=== PATIENT | male | born 1940 | race Caucasian/White ===

== ENCOUNTER 2016-07-20 22:19 | Outpatient (CLI) ==
[2016-07-20 22:52] VITALS: BMI 28.7
== END 2016-07-20 22:20 | disposition home or self-care (01) ==
LOC: AMBL 22:19
PROVIDERS: ATTEND Emergency Medicine
DX: R56.9 Unspecified convulsions (principal); R11.10 Vomiting, unspecified; R53.1 Weakness; R06.02 Shortness of breath; R19.7 Diarrhea, unspecified; R17 Unspecified jaundice; I44.0 Atrioventricular block, first degree; I49.3 Ventricular premature depolarization; R00.0 Tachycardia, unspecified

== ENCOUNTER 2016-07-20 22:33 | Emergency (ER) | payer OTHER ==
[2016-07-20] MEDS ORDERED: SODIUM CHLORIDE 1,000 ML IV STA (22:35)
[2016-07-20 22:39] LABS: HEMATOCRIT 29.5 % (42.0-52.0); HEMOGLOBIN 8.8 g/dl (14.0-18.0); MEAN CORPUSCULAR HEMOGLOBIN 30.2 pg (27.0-31.0); MEAN CORPUSCULAR HGB CONC 29.8 (31.8-35.4); MEAN CORPUSCULAR VOLUME 101.4 fl (80.0-94.0); PLATELET COUNT 431 10^3/uL (140-440); RED BLOOD COUNT 2.91 10^6/ul (4.70-6.10); WHITE BLOOD COUNT 10.15 K/ul (4.2-10.2)
[2016-07-20] MEDS ORDERED: ZOSYN 3.375 GM 3.375 GM in SODIUM CHLORIDE 100 ML IV STA (22:42)
[2016-07-20 22:50] LABS: ANISOCYTOSIS NOT PRESENT (NOT PRESENT)
[2016-07-20 22:52] VITALS: BP 110/0; TEMP 95.4; BMI 28.7
--- NOTE | 2016-07-20 22:53 | ED.PDOC ---
General ED Provider: Dr. GILMER ENGLAND Chief Complaint: Shortness of Air Stated Complaint: Patient is dischared from the [facility] today at 5 pm, after a extensive stay and he was put on a drain for the gb stones, on the way to [place] they ate at [facility], and came home, he was SOB, not by him self, called EMT. Time Seen by Physician: 22:51 Primary Care Provider: FINESSE TORIBIO Nursing and Triage Documentation Reviewed and Agree: Yes Respiratory Complaint Exam - Shortness of Air Complaint/Exam Symptoms Are: Still present Timing: Constant Initial Severity: Moderate Current Severity: Moderate Character: Reports: Dyspnea at rest Aggravating: Reports: None Alleviating: Reports: None Associated Signs and Symptoms: Reports: Diaphoresis, Labored breathing, Decreased intake. Denies: Cough, Wheezing, Chest pain with cough, Chest pain, Fever, Chills, Nasal congestion, Dizziness, Calf pain, Calf swelling, Edema, Rapid breathing History of Healthcare-Acquired Pneumonia: No Pulmonary Embolism Risk Factors: Reports: None Cardiac Risk Factors: Reports: CAD, Hypertension Pseudomonas Risk Factors: Reports: None Tuberculosis Risk Factors: Reports: None Home Oxygen Use: No Recent Stress Test: No Recent Echo/LV Function: No Respiratory Distress: Mild Stridor Present: No Tracheal Deviation: No Subcutaneous Emphysema: No Accessory Muscle Use: Yes Retractions: Not Present Diminished Breath Sounds: No Prolonged Expiratory Phase: Yes Unable to Speak Full Sentences: Yes Fatigue: No Leg Swelling: No Virgilio's Sign Present: No Differential Diagnoses: CHF, Unstable Angina, Other (sepsis) Quality Indicators for AMI: EKG in 10min. Review of Systems - Review Of Systems Constitutional: Reports: Malaise, Weakness Eyes: Reports: No symptoms Ears, Nose, Mouth, Throat: Reports: No symptoms Respiratory: Reports: Short of air Cardiac: Reports: No symptoms GI: Reports: No symptoms : Reports: No symptoms Musculoskeletal: Reports: No symptoms Skin: Reports: No symptoms Neurological: Reports: No symptoms Endocrine: Reports: No symptoms Hematologic/Lymphatic: Reports: No symptoms All Other Systems: Reviewed and Negative Past Medical History - Past Medical History Previously Healthy: No Endocrine: Reports: None Cardiovascular: Reports: CAD, Hypertension, CHF Respiratory: Reports: None Hematological: Reports: None Gastrointestinal: Reports: Liver, Gallstones (s/p salud) Genitourinary: Reports: None Neuro/Psych: Reports: None Musculoskeletal: Reports: None Cancer: Reports: None - Surgical History General Surgical History: Reports: CABG - Family History Family History: Reports: None - Social History Lives: With family Physical Exam - Physical Exam Appearance: Ill-appearing, Thin Ill-appearing: Moderate Eyes: EOMI (icterus) ENT: Ears normal, Nose normal, Oropharynx normal Respiratory: Breath sounds diminished Cardiovascular: RRR, Tachycardia GI/: Soft, Bowel sounds hypoactive Musculoskeletal: Normal strength, ROM intact, No edema, No calf tenderness Skin: Warm, Dry, Normal color Neurological: Sensation intact, Motor intact, Reflexes intact, Cranial nerves intact, Alert, Oriented Psychiatric: Affect appropriate, Mood appropriate Critical Care Note - Critical Care Note Total Time (mins): 0 Course - Course Hematology/Chemistry: 07/20/16 22:35 07/20/16 22:35 Orders, Labs, Meds: Lab Review 07/20/16 07/20/16 22:35 22:42 WBC 10.15 RBC 2.91 L Hgb 8.8 L Hct 29.5 L MCV 101.4 H MCH 30.2 MCHC 29.8 L RDW Coeff of Grace 20.6 H Plt Count 431 Neutrophils % (Manual) 51.0 Lymphocytes % (Manual) 42.0 Monocytes % (Manual) 2.0 Metamyelocytes % 4.0 H Promyelocytes % 1.0 H Puncture Site Lb O2 Saturation 93.0 L ABG pH 7.261 L* ABG pCO2 27.2 L ABG pO2 73.0 L ABG HCO3 12.3 L ABG Total CO2 13 L ABG Base Excess -15 L Owen Test + FiO2 % 21.0 Sodium 136 Potassium 4.4 Chloride 101 Carbon Dioxide 13 L Anion Gap 26.4 BUN 14 Creatinine 1.87 H Estimated GFR (MDRD) 35.00 BUN/Creatinine Ratio 7.48 Glucose 293 H Calcium 9.0 Total Bilirubin 10.72 H AST 154 H ALT 108 H Alkaline Phosphatase 271 H Total Creatine Kinase 34 Troponin I < 0.0100 Total Protein 7.3 Albumin 2.0 L Globulin 5.3 Albumin/Globulin Ratio 0.38 Orders Category Date Time Status ABG DRAW REQUEST Stat CARDIO 07/20/16 22:42 Completed EKG-(ED ONLY) Stat CARDIO 07/20/16 22:35 Completed NEBULIZER TREATMENT Stat CARDIO 07/20/16 22:57 Completed ABG Stat LAB 07/20/16 22:42 Completed CBC W/ AUTO DIFF Stat LAB 07/20/16 22:35 Completed COMPREHENSIVE METABOLIC PANEL Stat LAB 07/20/16 22:35 Completed CREATINE KINASE Stat LAB 07/20/16 22:35 Completed LACTIC ACID Stat LAB 07/21/16 00:16 Received MANUAL DIFFERENTIAL Stat LAB 07/20/16 22:35 Completed TROPONIN I Stat LAB 07/20/16 22:35 Completed Ipratropium/Albuterol Neb [Duoneb] MEDS 07/20/16 22:57 Discontinued 1 vial NEB ONCE STA Piperacillin Sodium/Tazobactam [Zosyn 3.375 gm] 3.375 MEDS 07/20/16 22:42 Discontinued gm 0.9 % Sodium Chloride [Sodium Chloride] 100 ml IV ONCE Sodium Chloride 0.9% [Sodium Chloride] 1,000 ml MEDS 07/20/16 22:35 Discontinued IV BOLUS Vancomycin HCl [Vancomycin] 1 gm MEDS 07/21/16 00:25 Active 0.9 % Sodium Chloride [Sodium Chloride] [address] ABDOMEN/PELVIS WO CONTRAST Stat RADS 07/20/16 22:[address] CHEST W/O CONTRAST Stat RADS 07/20/16 23:[address] HEAD W/O CONTRAST Stat RADS 07/20/16 23:12 Completed Medications Generic Name Dose Route Start Last Admin Trade Name Freq PRN Reason Stop Dose Admin Vancomycin HCl 1 gm/ Sodium 250 mls @ 250 mls/hr 07/21/16 00:25 Chloride IV 07/21/16 01:24 ONCE STA Discontinued Medications Generic Name Dose Route Start Last Admin Trade Name Freq PRN Reason Stop Dose Admin Albuterol/Ipratropium 1 vial 07/20/16 22:57 07/20/16 23:01 Duoneb NEB 07/20/16 22:58 1 vial ONCE STA Administration Sodium Chloride 1,000 mls @ 1,000 mls/hr 07/20/16 22:35 07/20/16 22:40 Sodium Chloride IV 07/20/16 23:34 1,000 mls/hr BOLUS STA Administration Piperacillin Sod/Tazobactam 100 mls @ 100 mls/hr 07/20/16 22:42 07/20/16 23: 13 Sod 3.375 gm/ Sodium Chloride IV 07/20/16 23:41 100 mls/hr ONCE STA Administration Vital Signs: Temp Pulse Resp BP Pulse Ox 07/20/16 22:33 95.4 F L 136 H 24 110/0 L 98 Departure - Departure Time of Disposition: :08 Disposition: TSF SHORT-TRM HOSP Discharge Problem: Septic shock, Metabolic acidosis Instructions: Hypotension (ED) Condition: Poor Pt referred to PMD for follow-up: Yes Additional Instructions: accepted at [facility] patient will shipped by Donna lagunas Allergies/Adverse Reactions: Allergies atorvastatin [From Lipitor] Adverse Reaction (Verified 07/20/16 22:53) gabapentin Adverse Reaction (Verified 07/20/16 22:53) lisinopril Adverse Reaction (Verified 07/20/16 22:52) oxycodone Adverse Reaction (Verified 07/20/16 22:52) perflutren [From Definity] Adverse Reaction (Verified 07/20/16 22:52) Home Medications: Ambulatory Orders Aspirin [Aspirin EC] 81 mg PO DAILYWM 07/20/16 Furosemide [Lasix Tab] 20 mg PO DAILY PRN 07/20/16 Furosemide [Lasix Tab] 20 mg PO QDAC 07/20/16 Lactulose 20 gm PO Q6H PRN 07/20/16 Losartan Potassium [Cozaar] 25 mg PO DAILY 07/20/16 Lysine HCl [l-Lysine] 500 mg PO DAILY 07/20/16 Metoprolol Tartrate [Lopressor] 12.5 mg PO BID 07/20/16 Multivitamin 1 cap PO DAILY 07/20/16 Nitroglycerin [Nitrostat] 0.4 mg SL DIRECTED PRN 07/20/16 Nystatin [Nystatin Oral Susp] 5 ml PO TID PRN 07/20/16 Piperacillin Sodium/Tazobactam [Piperacil-Tazobact 13.5 gm Vl] 13.5 gm IV DIRECTED 07/20/16 Potassium Chloride [K-Tab ER] 20 meq PO DAILY PRN 07/20/16 Pregabalin [Lyrica] 100 mg PO BID 07/20/16 Ranitidine HCl [Zantac] 150 mg PO QDAC PRN 07/20/16 Sotalol HCl [Sotalol] 80 mg PO BID 07/20/16 Ubidecarenone [Co Q10] 500 mg PO DAILY 07/20/16 Warfarin Sodium [Coumadin] 0.5 tab PO WE 07/20/16 Warfarin Sodium [Coumadin] 5 mg PO JIMENA 07/20/16 Transfer Form Completed: Yes Disposition Discussed With: Patient, Family
[2016-07-20 22:55] LABS: ABG BASE EXCESS -15 (-2.0-2.0); ABG HCO3 12.3 (22.0-26.0); ABG PCO2 27.2 mmHg (35-45); ABG PH 7.261 (7.35-7.45); ABG TCO2 13 (22.0-28.0)
[2016-07-20] MEDS ORDERED: DUONEB NEB STA (22:57)
[2016-07-20 23:08] LABS: ALANINE AMINOTRANSFERASE 108 U/L (12-78); ALBUMIN/GLOBULIN RATIO 0.38; ALKALINE PHOSPHATASE 271 U/L (56-119); ANION GAP 26.4; ASPARTATE AMINO TRANSFERASE 154 U/L (15-37); BILIRUBIN,TOTAL 10.72 mg/dL (0.00-1.20); BLOOD UREA NITROGEN 14 mg/dL (7-18); BUN/CREATININE RATIO 7.48; CARBON DIOXIDE 13 mmol/L (23-31); CHLORIDE 101 mmol/L (98-107); CREATINE KINASE 34 U/L; CREATININE 1.87 mg/dL (0.60-1.10); GLUCOSE 293 mg/dL (82-115); POTASSIUM 4.4 mmol/L (3.5-5.1); SODIUM 136 mmol/L (136-145); TOTAL PROTEIN 7.3 g/dL (5.8-8.1)
[2016-07-21] MEDS ORDERED: SODIUM CHLORIDE 1,000 ML IV STA (00:02)
--- NOTE | 2016-07-21 00:12 | CT ---
EXAM: CT brain without contrast HISTORY: Altered mental status and vomiting TECHNIQUE: CT of the brain without intravenous contrast FINDINGS: There is no acute hemorrhage midline shift or mass effect. No hydrocephalus or abnormal extra-axial fluid collection. Generalized involutional atrophy, moderate. Chronic microvascular ch anges of the white matter tracts, moderate. No acute large vessel territorial infarct is seen. The bony cranium appears normal. The visualized paranasal sinuses are clear. Soft tissues without signi ficant abnormality. IMPRESSION: 1. Chronic changes as described. No acute intracranial abnormality is seen.
--- NOTE | 2016-07-21 00:20 | CT ---
EXAM: CT chest without intravenous contrast 07/20/2016. Sagittal and coronal reformatted images ob tained HISTORY: Shortness of breath COMPARISON: None. FINDINGS: The heart size appears within normal limits. Left-sided pacer device is in place. Posto perative changes of the mediastinum. Atherosclerotic vascular disease. Linear ground-glass density is present within the right and left lung base. This may represent atelectasis, scarring and/or pn eumonia. Bibasilar bronchial wall thickening. Aspiration/bronchiolitis not excluded. No pleural effusion. No pneumothorax. No acute osseous abnormality within the chest. Postoperative changes of the right shoulder. IMPRESSION: 1. Bibasilar atelectasis, scarring and/or pneumonia. 2. Atherosclerotic vascular disease. 3. Bibasilar bronchial wall thickening. Aspiration/bronchiolitis not excluded.
[2016-07-21] MEDS ORDERED: VANCOMYCIN 1 GM in SODIUM CHLORIDE 250 ML IV STA (00:25)
--- NOTE | 2016-07-21 00:31 | CT ---
EXAM: CT abdomen pelvis without intravenous contrast 07/20/2016. Sagittal and coronal reformatted images obtained HISTORY: Jaundice. Hypotension. COMPARISON: None. FINDINGS: Bibasilar atelectasis. A drainage catheter traverses the right lobe of the liver and extends through the common bile duct t o the level of the duodenum. There is complex blood products/hematoma along the undersurface of the right lobe of the liver. Complex pelvic fluid likely due to hemorrhage. Fluid fluid level can be seen on image 130/131. Active bleeding cannot be excluded due to lack of intravenous contrast. No prior study available fo r comparison. There is no hydronephrosis. Benign appearing renal cysts. The spleen and pancreas show no gross abnormality. There is no evidence of bowel obstruction. Norm al appendix. Diverticulosis without diverticulitis. IMPRESSION: 1. Transhepatic drainage catheter extends through the common bile duct to the level of the duodenum . 2. Complex hemorrhage/hematoma along the undersurface of the right lobe of the liver. 3. Complex fluid within the pelvis. Fluid fluid level can be seen on images 130 and 131. This is also most compatible with blood products. 4. Active hemorrhage cannot be excluded on the current study. Evaluation is limited due to lack of intravenous contrast. In addition there is no prior study for comparison. Critical FINDINGS: I personally discussed the above findings with Dr. Hussein, 07/21/2016, 12:20 a.m .
== END 2016-07-21 01:40 | disposition short-term general hospital (02) ==
LOC: ED 22:33
DX: A41.9 Sepsis, unspecified organism (principal); R65.21 Severe sepsis with septic shock; E87.2 Acidosis; I95.9 Hypotension, unspecified; R06.02 Shortness of breath; R61 Generalized hyperhidrosis; K80.80 Other cholelithiasis without obstruction; Z87.19 Personal history of other diseases of the digestive system; Z96.89 Presence of other specified functional implants
CPT/HCPCS: 36415; 80053; 82550; 82803; 83605; 84484; 85007; 85025; 93005; 93010; 94640; 96361; 96365; 96367; 99285

== ENCOUNTER 2016-08-08 12:53 | Outpatient (CLI) | payer OTHER ==
[2016-08-08 13:02] LABS: BASOPHILS # (AUTO) 0.1 K/uL (0-0.2); BASOPHILS % (AUTO) 0.8 % (0.0-3.0); EOSINOPHILS # (AUTO) 0.8 K/ul (0.0-0.7); EOSINOPHILS % (AUTO) 8.2 % (0.0-7.0); HEMATOCRIT 35.7 % (42.0-52.0); HEMOGLOBIN 11.7 g/dl (14.0-18.0); IMMATURE GRANULOCYTE % (AUTO) 1.3 % (0.0-5.0); LYMPHOCYTES # (AUTO) 2.4 K/uL (0.60-3.4); LYMPHOCYTES % (AUTO) 24.2 (10.0-50.0); MEAN CORPUSCULAR HEMOGLOBIN 30.9 pg (27.0-31.0); MEAN CORPUSCULAR HGB CONC 32.8 (31.8-35.4); MEAN CORPUSCULAR VOLUME 94.2 fl (80.0-94.0); MONOCYTES # (AUTO) 1.3 K/uL (0.4-2.0); MONOCYTES % (AUTO) 13.4 (0-10); NEUTROPHILS # (AUTO) 5.1 K/ul (2.0-6.9); NEUTROPHILS % (AUTO) 52.1; PLATELET COUNT 400 10^3/uL (140-440); RED BLOOD COUNT 3.79 10^6/ul (4.70-6.10); WHITE BLOOD COUNT 9.81 K/ul (4.2-10.2)
[2016-08-08 13:23] LABS: ALBUMIN 2.4 g/dL (3.4-5.0); ALBUMIN/GLOBULIN RATIO 0.49; ANION GAP 16.8; BILIRUBIN,TOTAL 8.59 mg/dL (0.00-1.20); BUN/CREATININE RATIO 12.58; CREATININE 1.43 mg/dL (0.60-1.10); POTASSIUM 4.8 mmol/L (3.5-5.1); TOTAL PROTEIN 7.3 g/dL (5.8-8.1)
== END 2016-08-08 12:54 | disposition home or self-care (01) ==
LOC: NONPT 12:53
PROVIDERS: ATTEND Internal Medicine Infectious Disease
DX: K83.0 Cholangitis (principal); A41.9 Sepsis, unspecified organism; I10 Essential (primary) hypertension; Z79.2 Long term (current) use of antibiotics
CPT/HCPCS: 80053; 85025

== ENCOUNTER 2016-08-16 12:49 | Outpatient (CLI) ==
[2016-08-16 14:01] LABS: CALCIUM 9.6 mg/dL (8.2-10.2); POTASSIUM 4.6 mmol/L (3.5-5.1)
[2016-08-16 14:02] LABS: ALBUMIN 2.7 g/dL (3.4-5.0); ALBUMIN/GLOBULIN RATIO 0.56; ANION GAP 20.6; BILIRUBIN,TOTAL 5.26 mg/dL (0.00-1.20); BUN/CREATININE RATIO 18.78; CREATININE 1.65 mg/dL (0.60-1.10); TOTAL PROTEIN 7.5 g/dL (5.8-8.1)
== END 2016-08-16 12:50 | disposition home or self-care (01) ==
LOC: NONPT 12:49
PROVIDERS: ATTEND Internal Medicine Infectious Disease
DX: K83.0 Cholangitis (principal); A41.51 Sepsis due to Escherichia coli [E. coli]; I10 Essential (primary) hypertension
CPT/HCPCS: 80053

== ENCOUNTER 2016-09-12 13:00 | Outpatient (RCR) ==
--- NOTE | 2016-09-08 17:30 | RS.OTEVAL ---
Subjective Date of Note: 09/08/16 Visit #: 1 Date of Evaluation: 09/08/16 Payer Source: MEDICARE Date of Onset/Injury/Change in Status: 07/09/16 (Eccoli ) Treatment Diagnosis: bilateral shoulder weakness Treatment Side (optional): Bilateral *Precautions: at risk for falls, drain for liver History of Condition/Mechanism of Injury: Pt became sick in [place] and then has had recurrent episodes of ecoli bacteremia. Pt had shingles in RUE armpit and side of core. Pt had a RUE shoulder replacement on 2015. Pt then had more episodes of ecoli due to the gall stone. Pt is going on Sep.20 for an ERCP at [facility]. Level of Function: Pt is dressing himself, he has limited carrying ability and he is fatigued quickly. Pt has been sick on and off for over 7 months. Pt has limited bilateral shoulder AROM. Functional Limitations: Reaching, Pushing, Pulling, Lifting, Carrying, Ambulation Current Complaints/Gains: difficulty with BUE AROM, weakness, limited activity tolerance. Medical History Medical History Comments:: Pt has had a total R shoulder reconstruction, drain to the liver, ecoli x 3, gall stone, liver cysts. Surgical History Comments:: Right shoulder replacement, drain for liver Patient's Goals: To get stronger and return to PLOF. Pain Assessment - Pain Description Current Pain Intensity: 0 Functional Outcome Measures UE Functional Index: 70 - G Codes & Severity Modifier G Codes: Carrying moving and handling. Current CL with 70% limitation. Goal CH 0% limitation Source of G Code score: Carrying, Moving, and Handling Observation - Observation Posture: Rounded Shoulders Handedness: Left - Left Shoulder ROM Left Shoulder Flexion: 90 Left Shoulder Extension: 45 Left Shoulder Abduction: 85 Left Shoulder Horizontal Adduction: 20 Left Shoulder Internal Rotation: 25 Left Shoulder External Rotation: 30 - Right Shoulder ROM Right Shoulder Flexion: 92 Right Shoulder Extension: 47 Right Shoulder Abduction: 85 Right Shoulder Horizontal Adduction: 20 Right Shoulder Internal Rotation: 25 Right Shoulder External Rotation: 19 - Left Shoulder Strength Left Shoulder Flexion: 3- Fair- Left Shoulder Extension: 3- Fair- Left Shoulder Abduction: 3- Fair- Left Shoulder Adduction: 3- Fair- Left Shoulder External Rotation: 3- Fair- Left Shoulder Internal Rotation: 3- Fair- - Right Shoulder Strength Right Shoulder Flexion: 3- Fair- Right Shoulder Extension: 3- Fair- Right Shoulder Abduction: 3- Fair- Right Shoulder Adduction: 3- Fair- Right Shoulder External Rotation: 3- Fair- Right Shoulder Internal Rotation: 3- Fair- Elbow ROM: Bilaterally WFL's Elbow Muscle Strength: Bilaterally WFL's - Left Elbow Strength Left Elbow Extension: 4- Good- Left Elbow Flexion: 4- Good- Left Forearm Pronation: 4- Good- Left Forearm Supination: 4- Good- - Right Elbow Strength Right Elbow Extension: 4- Good- Right Elbow Flexion: 4- Good- Right Forearm Pronation: 4- Good- Right Forearm Supination: 4- Good- Wrist ROM: Bilaterally WFL's Wrist Muscle Strength: Bilaterally WFL's - Left Wrist Strength Left Wrist Extension: 4 Good Left Wrist Flexion: 4 Good Left Wrist Radial Deviation: 4 Good Left Wrist Ulnar Deviation: 4 Good Left Forearm Pronation: 4 Good Left Forearm Supination: 4 Good - Right Wrist Strength Right Wrist Extension: 4 Good Right Wrist Flexion: 4 Good Right Wrist Radial Deviation: 4 Good Right Wrist Ulnar Deviation: 4 Good Right Forearm Pronation: 4 Good Right Forearm Supination: 4 Good Relay Man Strength Left Hand Relay Man Strength: 34 Right Hand Relay Man Strength: 25 Dynamometer Testing Position: 2nd Position Palpation Palpation Findings: Tenderness, Trigger Point Comments:: Under right axillary area tenderness from shingles. Sensation Sensation Description: Within Normal Limits Modalities - Treatment Modality: Electrical Stim Unattended Parameters/Method Applied: .4 w/cm2 to decrease taut muscles and tenderness Patient Position: Sitting - Treatment Patient Position: Sitting - Hot Pack/Cryotherapy Treatment: Hot Pack, Cryotherapy Interventions - Exercise/Activities Exercise/Activities/Manual Therapy: Aren Spaulding, EX - Charges Total Direct Minutes: 60 Total Treatment Time: 45 Procedures billed for this date of service:: Aren Spaulding, EX Assessment Assessment: Pt has limited AROM of BUE shoulders and weakness limiting his ability to complete tasks over head, and carrying, moving, and handling tasks. Rehab Potential: Good Short Term Goals Goal #1: Pt to increase Mass general ophthalmologist of RUE to 45# Goal to be met by: 10/06/16 Goal #2: Pt to increase BUE activity tolerance to 20 minutes Goal to be met by: 10/06/16 Goal #3: Pt to increase BUE Shoulder flexion AROM to 135 Goal to be met by: 10/06/16 Goal #4: Pt to increase BUE strength to 4+/5. Goal to be met by: 10/06/16 Senior Living Goals Goal #1: Pt to increase mass general ophthalmologist of RUE to 50# Goal to be met by: 10/06/16 Goal #2: Pt to increase Activity tolerance to 30 minutes with rests PRN. Goal to be met by: 10/20/16 Goal #3: Pt to increase BUE shoulder flexion to 145 degree. Goal to be met by: 10/20/16 Goal #4: Pt to increase BUE strength to 5/5 Goal to be met by: 10/20/16 Plan - Treatment to be provided Procedures: Therapeutic Exercises, Therapeutic Activity, Neuromuscular Rehab, Manual Therapy, Patient Education Modalities: Electrical Stimulation, Ultrasound/Phonophoresis, Cryotherapy, Hot Packs - Treatment Plan Frequency: 3 X week Duration: 6 weeks ORDER # VISITS AND/OR THROUGH DATE: October 20, 2016 - Treatment Code (1) Muscle weakness (generalized) Comments: M62.81
--- NOTE | 2016-09-09 15:20 | RS.OPPTEV2 ---
Date of Note: 09/07/16 Visit #: 1 Date of Evaluation: 09/07/16 Payer Source: MEDICARE Treatment Diagnosis: General weakness, gait abnormality History of Condition/Mechanism of Injury:: Patient reports being very weak since having E Coli Sepsis and Cholecystitis. Problems with E Coli in his system began in February 2016. States he had to be in bed quite a bit and has lost a lot of weight (50 lbs.) and strength. Prior Level of Function.....Patient was independent with: ADL's, Self Care, Caregiving, Ambulation/Mobility, Community Integration/Access Functional Limitations: ADL's, Ambulation, Community Access/Integration Current Subjective/complaints:: Patient reports general weakness and decreased endurance since his hospitalizations. States prior to the onset in February, he was independent with all ADL's, Selfcare, and ambulation. States he now needs assistance with ADL's of showering and some help with getting dressed, due to having the biliary drain. Reports he has been using a straight cane with walking long distances, due to LE weakness and decreased endurance of long distances. States he does not use an assistive device in his home. He has a few stairs to get into his home. *Precautions: Fall risk, biliary drain Medical History Medical History Comments:: Ecoli X 3 since the first of the year, liver cysts, Hypotension, Moderate-severe aortic stenosis, atrial fibrillation, CAD Surgical History Comments:: Biliary drain, right TSR December 2015, CABG 2011. Patient's Goals: His goal is to gain strength and return to his prior level of function. Pain Assessment - Pain Description Pain Location: Denies pain. Functional Outcome Measure Tinetti: 16 (16/28=42.9% impairment) - G Codes & Severity Modifier G Codes & Modifier: Mobility current CK. Mobility goal CI Source of G Code score: Tinetti Assessment Observation - Observation Inspection: Patient presents to the department without an assistive device, carrying a biliary drain. Posture: Forward Head, Rounded Shoulders, Decreased Lumbar Lordosis Gait - Gait Pattern Gait Comments: Patient ambulates without an assistive device, independently. He demonstrates a slow gait, with decreased bilateral hip and knee flexion during swing phase. General Range of Motion: Bilateral LE AROM is WFL's. Muscle Strength: Bilateral hip strength is 4/5 throughout. Bilateral knee strength is 4 to 4+/5, ankles 4+/5. Trunk strength 4/5. Sensation - Sensation Right Lower Extremity: Intact/Normal Left Lower Extremity: Intact/Normal Balance - Sitting Balance Static Sitting Balance: Good Dynamic Sitting Balance: Good - Standing Balance Static Standing Balance: Good Dynamic Standing Balance: Good (-) Coordination - Tests Bilateral Heel to Pena: Normal/Intact Toe Tapping: Normal/Intact Interventions - Exercise/Activities/Manual Therapy Exercises/Activities: Patient instructed in exercises for HEP: seated LAQ and hip flexion, supine SAQ's, hip abd/adduction, and bridging. Manual Therapy: NA HOME EXERCISE PROGRAM: seated LAQ and hip flexion, supine SAQ's, hip abd/ adduction, and bridging. - Charges Total Direct Minutes: 55 mins Total Treatment Time: 55 mins Procedures billed for this date of service:: CHRISTEN Medium complexity Assessment Assessment: Patient presents to therapy with a diagnosis of general weakness due to recent hospitalization from E Coli sepsis and Cholecystitis. He has lost 50 lbs over the course of his illnesses and reports a decline in strength and endurance. He exhibits weakness of the trunk, hips, and knees. He demonstrates to be at a high risk for falls per Tinetti Assessment. He will benefit from strengthening exercises and safety education with ambulation to decrease his risk for falls and improve his overall functional ability. Patient Education: Education of diagnosis, Home Exercise Program, Home Safety, Education of Plan of Care Rehab Potential: Good Short Term Goals Goal #1: Pt independent & compliant with basic HEP. Goal to be met by: 09/23/16 Goal #2: Bilateral hip strength 4+/5. Goal to be met by: 09/23/16 Goal #3: Bilateral quad strength 5/5. Goal to be met by: 09/23/16 Goal #4: Pt to demonstrate good safety awareness with ambulation. Goal to be met by: 09/23/16 Half-Way Goals Goal #1: Pt knows HEP and to continue ex's to maintain functional level at D/C. Goal to be met by: 10/19/16 Goal #2: Score on Tinetti Assessment improved to 22/28. Goal to be met by: 10/19/16 Goal #3: Pt to amb. community distances with good safety and min. gt deviations. Goal to be met by: 10/19/16 Goal #4: Pt will report improved confidence in mobility/ambulation. Goal to be met by: 10/19/16 Plan - Treatment to be Provided Procedures: Therapeutic Exercises, Therapeutic Activity, Neuromuscular Rehab, Patient Education Modalities: No Modalities - Treatment Plan Frequency: 2 X week Duration: 4 weeks ORDER # VISITS AND/OR THROUGH DATE: 10/19/16 - Treatment Code (1) Muscle weakness (generalized) Comments: M62.81 (2) At risk for falls Comments: Z91.81 (3) Gait abnormality Comments: R26.9 (4) Biliary tract infection Comments: K83.0
--- NOTE | 2016-09-12 13:12 | RS.OTDNOTE ---
Subjective Date of Note: 09/09/16 Visit #: 2 Date of Evaluation: 09/08/16 Payer Source: MEDICARE Date of Onset/Injury/Change in Status: 07/09/16 (Eccoli ) Treatment Diagnosis: bilateral shoulder weakness Treatment Side (optional): Bilateral *Precautions: at risk for falls, drain for liver History of Condition/Mechanism of Injury: Pt became sick in [place] and then has had recurrent episodes of ecoli bacteremia. Pt had shingles in RUE armpit and side of core. Pt had a RUE shoulder replacement on 2015. Pt then had more episodes of ecoli due to the gall stone. Pt is going on Sep.20 for an ERCP at [facility]. Level of Function: Pt is dressing himself, he has limited carrying ability and he is fatigued quickly. Pt has been sick on and off for over 7 months. Pt has limited bilateral shoulder AROM. Functional Limitations: Reaching, Pushing, Pulling, Lifting, Carrying, Ambulation Current Complaints/Gains: Pt states R UE soreness/tenderness increased from evaluation yesterday but that L UE seems the same. States he utilizes a CP at home for pain jordy. Modalities - Treatment Modality: Ultrasound Parameters/Method Applied: 1.5w/cm2 x 7 mins each shoulder Patient Position: Sitting - Hot Pack/Cryotherapy Treatment: Hot Pack, Cryotherapy Interventions - Exercise/Activities Exercise/Activities/Manual Therapy: Manual therapy/trigger point and MFR performed to B UE's/shoulder blades. Pt in sittting and supine position for B UE TE/PROM. Pt ed on HEP including isometric ex's and codman's ex. SC AROM performed. HOME EXERCISE PROGRAM: ISO wall/table slides retraction - Charges Total Direct Minutes: 62 Total Treatment Time: 80 Procedures billed for this date of service:: CP US EX2 MT Assessment Patient Education: Education of diagnosis, Body/Joint mechanics, Home Exercise Program, Home Safety, Activity Modification, Education of Plan of Care Patient demonstrates compliance with HEP?: Yes Short Term Goals Goal #1: Pt to increase Mass training specialist of RUE to 45# Goal to be met by: 10/06/16 Progress towards goal: Progressing Goal #2: Pt to increase BUE activity tolerance to 20 minutes Goal to be met by: 10/06/16 Progress towards goal: Progressing Goal #3: Pt to increase BUE Shoulder flexion AROM to 135 Goal to be met by: 10/06/16 Progress towards goal: Progressing Goal #4: Pt to increase BUE strength to 4+/5. Goal to be met by: 10/06/16 Progress towards goal: Progressing Supervisor Shuttle Preparation Goals Goal #1: Pt to increase mass training specialist of RUE to 50# Goal to be met by: 10/06/16 Progress towards goal: Progressing Goal #2: Pt to increase Activity tolerance to 30 minutes with rests PRN. Goal to be met by: 10/20/16 Progress towards goal: Progressing Goal #3: Pt to increase BUE shoulder flexion to 145 degree. Goal to be met by: 10/20/16 Progress towards goal: Progressing Goal #4: Pt to increase BUE strength to 5/5 Goal to be met by: 10/20/16 Progress towards goal: Progressing Plan PLAN OF CARE EXPIRES ON:: 10/20/16 ORDER # VISITS AND/OR THROUGH DATE: October 20, 2016 PLAN: Continue Plan of Care Frequency: 3 X week Duration: 4 weeks
--- NOTE | 2016-09-12 15:21 | RS.OPPTDN ---
Subjective Date of Note: 09/12/16 Visit #: 2 Date of Evaluation: 09/07/16 Payer Source: MEDICARE Treatment Diagnosis: General weakness, gait abnormality Current Subjective/complaints:: Patient reports weakness after long hospital stays. States he is motivated to work on HEP and return to PLOF. States he was walking long distances prior to illness. *Precautions: at risk for falls, drain for liver Pain Assessment - Pain Description Pain Location: Denies pain. Interventions - Exercise/Activities/Manual Therapy Exercises/Activities: Began with mat exercises of 2# to each ankle for SAQ and hook-lying LE lifts. SLR and isometric hip adduction. All 2s/10reps. In sitting , with 2# alt hip flexion and LAQ, 2a/10reps each. In standing, mini-squats, toe -ups, alt hip abd, and marching, all at handrail. Reviewed safety with ambulation, transfers, and general ADL's. Reveiwed HEP and patient given copies of new exercises. Total minutes of Exercise: 25mins Manual Therapy: NA HOME EXERCISE PROGRAM: seated LAQ and hip flexion, supine SAQ's, hip abd/ adduction, and bridging. SLR, isometric hip add. Standing at kitchen counter for mini-squats, toe-ups, marching and alt hip abd. - Charges Total Direct Minutes: 25mins Total Treatment Time: 25mins Procedures billed for this date of service:: EX2 Assessment: Patient tolerates progression of LE strengthening exercises well. Patient Education: Home Exercise Program, Home Safety, Activity Modification Patient demonstrates compliance with HEP?: Yes Short Term Goals Goal #1: Pt independent & compliant with basic HEP. Goal to be met by: 09/23/16 Progress towards Goal:: Progressing Goal #2: Bilateral hip strength 4+/5. Goal to be met by: 09/23/16 Goal #3: Bilateral quad strength 5/5. Goal to be met by: 09/23/16 Goal #4: Pt to demonstrate good safety awareness with ambulation. Goal to be met by: 09/23/16 Progress towards Goal:: Progressing Mcfp Goals Goal #1: Pt knows HEP and to continue ex's to maintain functional level at D/C. Goal to be met by: 10/19/16 Goal #2: Score on Tinetti Assessment improved to 22/28. Goal to be met by: 10/19/16 Goal #3: Pt to amb. community distances with good safety and min. gt deviations. Goal to be met by: 10/19/16 Goal #4: Pt will report improved confidence in mobility/ambulation. Goal to be met by: 10/19/16 Plan PLAN OF CARE EXPIRES ON:: 10/19/16 ORDER # VISITS AND/OR THROUGH DATE: 10/19/16 PLAN: Continue Plan of Care
--- NOTE | 2016-09-12 16:14 | RS.OTDNOTE ---
Subjective Date of Note: 09/12/16 Visit #: 3 Date of Evaluation: 09/08/16 Payer Source: MEDICARE Date of Onset/Injury/Change in Status: 07/09/16 (Eccoli ) Treatment Diagnosis: bilateral shoulder weakness Treatment Side (optional): Bilateral *Precautions: at risk for falls, drain for liver History of Condition/Mechanism of Injury: Pt became sick in [place] and then has had recurrent episodes of ecoli bacteremia. Pt had shingles in RUE armpit and side of core. Pt had a RUE shoulder replacement on 2015. Pt then had more episodes of ecoli due to the gall stone. Pt is going on Sep.20 for an ERCP at [facility]. Level of Function: Pt is dressing himself, he has limited carrying ability and he is fatigued quickly. Pt has been sick on and off for over 7 months. Pt has limited bilateral shoulder AROM. Functional Limitations: Reaching, Pushing, Pulling, Lifting, Carrying, Ambulation Current Complaints/Gains: Pt states he has an overhead roger system but that he has not been utilizing it for months. States he will install on the main floor of his home so that he can utilize easily. Pain Assessment - Pain Description Pain Description: Tightness, Radiating, Dull, Aching Current Pain Intensity: 3+ Worst Pain Intensity: 7 Other comments regarding pain:: "soreness" Interventions - Exercise/Activities Exercise/Activities/Manual Therapy: Manual therapy/trigger point and MFR performed to B UE's/shoulder blades. Pt in sittting and supine position for B UE TE/PROM. Pt ed on HEP including isometric ex's and codman's ex. SC AROM performed along with B UE roger system. HOME EXERCISE PROGRAM: ISO wall/table slides retraction - Charges Total Direct Minutes: 45 Total Treatment Time: 60 Procedures billed for this date of service:: CP US EX2 Assessment Patient Education: Education of diagnosis, Body/Joint mechanics, Home Exercise Program, Home Safety, Activity Modification, Education of Plan of Care Patient demonstrates compliance with HEP?: Yes Short Term Goals Goal #1: Pt to increase Mass investigator of RUE to 45# Goal to be met by: 10/06/16 Progress towards goal: Progressing Goal #2: Pt to increase BUE activity tolerance to 20 minutes Goal to be met by: 10/06/16 Progress towards goal: Progressing Goal #3: Pt to increase BUE Shoulder flexion AROM to 135 Goal to be met by: 10/06/16 Progress towards goal: Progressing Goal #4: Pt to increase BUE strength to 4+/5. Goal to be met by: 10/06/16 Progress towards goal: Progressing Fpc Goals Goal #1: Pt to increase mass investigator of RUE to 50# Goal to be met by: 10/06/16 Progress towards goal: Progressing Goal #2: Pt to increase Activity tolerance to 30 minutes with rests PRN. Goal to be met by: 10/20/16 Progress towards goal: Progressing Goal #3: Pt to increase BUE shoulder flexion to 145 degree. Goal to be met by: 10/20/16 Progress towards goal: Progressing Goal #4: Pt to increase BUE strength to 5/5 Goal to be met by: 10/20/16 Progress towards goal: Progressing Plan PLAN OF CARE EXPIRES ON:: 10/20/16 ORDER # VISITS AND/OR THROUGH DATE: October 20, 2016 PLAN: Continue Plan of Care Frequency: 3 X week Duration: 4 weeks
== END 2016-09-19 ==
PROVIDERS: ATTEND Internal Medicine
DX: M19.90 Unspecified osteoarthritis, unspecified site (principal); K83.0 Cholangitis

== ENCOUNTER 2018-10-19 10:15 | Outpatient (RCR) | payer OTHER ==
--- NOTE | 2018-10-18 08:12 | RS.OPPTEV2 ---
Date of Note: 10/17/18 Visit #: 1 Number of visits approved by Insurance: n/a Date of Evaluation: 10/17/18 Payer Source: MEDICARE Surgery Performed?: No Treatment Diagnosis: lumbar radiculopathy, post herpetic neuralgia History of Condition/Mechanism of Injury:: Pain began after piking up somthing heavy working at a spot [employer]. pt has a history of post herpetic neuralgia. Prior Level of Function.....Patient was independent with: ADL's, Self Care, Ambulation/Mobility, Community Integration/Access Functional Limitations: Bending, Squatting, Ambulation, Community Access/ Integration Current Subjective/complaints:: pt states pain has been getting worse. States he can't do the things he wants to do due to pain. Treatment Side (optional): N/A *Precautions: pt has PACEMAKER Medical History Medical History: Hypertension, CVA/TIA, Arthritis Medical History Comments:: Afib, aortic stenosis, Surgical History: Shoulder Replacement, Lumbar Spine, CABG Smoking Status: Current some day smoker Hx Home Medications: aspirin, warfarin, metoprolol, zantac, furosemide, potassium cl, sotalol. Patient's Goals: decrease LBP Pain Assessment - Pain Description Pain Location: low back pain Pain Description: Aching Current Pain Intensity: 4-5/10 Other Comments regarding Pain:: pt also with post herpatic pain in R shld and chest rated 7-8/10 Functional Outcome Measure Oswestry LBP: 28 - G Codes & Severity Modifier G Codes & Modifier: n/a Source of G Code score: n/a Observation - Observation Inspection: pt with RLE longer than LLE. Hamsting and piriformis tightness both L worse than R Posture: Forward Head, Rounded Shoulders, Decreased Lumbar Lordosis Handedness: Right Gait - Gait Pattern Gait Comments: pt amb with slight increased flex and decreased step length General Range of Motion: BUE WFL's R shld painful due to post herpetic neuralgia. BLE WFL's Muscle Strength: BUE grossly 4+ to 5/5. LLE hip flex 4-/5, knee flex/ext 4/5, ankle DF/PF 4/5. RLE grossly 5/5 - ROM Lumbar Flexion: Hand reach to Mid-Thighs Sidebending to Left: Reach to Lateral Joint Line Sidebending to Right: Reach to Lateral Joint Line Lumbar Spine ROM Limitations: Soft Tissue Tightness, Muscle Weakness, Pain Comments: pt c/o increased pain with lumbar ROM. Flex and lat side bending limited due to pain. - Strength Trunk Extension: 4- Good- Trunk Flexion: 3- Fair- Trunk Lateral Flexion: 3- Fair- - Special Tests ANA Test: Positive Left SLR Test: Positive Left SI Joint Compression: Positive Palpation Palpation Findings: Tenderness, Trigger Point, Muscle Guarding Comments:: pt presents with tenderness in area of L lumbar radiating into LLE. pt with muscle guarding also noted. Trigger point palpated in area of L SI joint Sensation - Sensation Right Upper Extremity: Impaired (pt with nerve pain due to post herpetic neuralgia) Left Upper Extremity: Intact/Normal Right Lower Extremity: Intact/Normal Left Lower Extremity: Intact/Normal Balance - Sitting Balance Static Sitting Balance: Normal Dynamic Sitting Balance: Good - Standing Balance Static Standing Balance: Good Dynamic Standing Balance: Good - Heat/Cryotherapy Treatment: Cryotherapy Comments:: cold pack to L lumbar area Interventions - Exercise/Activities/Manual Therapy Exercises/Activities: pt received muscle energy technique with RLE into ext and LLE into flex. Received piriformis stretch, hamstring stretch, isometric hip add , pelvic tilt. Manual Therapy: NA HOME EXERCISE PROGRAM: pt given written HEP including: piriformis, hamstring stretch, isometric hip add, pelvic tilt. - Charges Timed Code Treatment Minutes: 48 Total Treatment Time: 59 Procedures billed for this date of service:: eval med, cp EVALUATION COMPLEXITY LEVEL EVALUATION COMPLEXITY LEVEL: HISTORY: Medium, EXAM OF BODY SYSTEMS: Medium, CLINICAL PRESENTATION: Medium, CLINICAL DECISION MAKING: Medium Assessment Assessment: pt presents with low back pain radiating into LLE. pt with tightness in hamstring, piriformis L worse than R. pt also with leg length discrepancy RLE longer than LLE. pt presents with trigger points and muscle guarding noted in L lumbar/sacral area. Feel pt would benefit from skilled PT for therex stretching and strengthening to improve mobility and decrease pain. Patient Education: Home Exercise Program, Education of Plan of Care Rehab Potential: Good Short Term Goals Goal #1: pt independent with initial HEP Goal to be met by: 11/02/18 Goal #2: Decrease LBP < 5/10 Goal to be met by: 11/02/18 Goal #3: Improve hamstring/piriformis flexibility L equal to R Goal to be met by: 11/02/18 Goal #4: Leg length equal Goal to be met by: 11/02/18 Third Officer Goals Goal #1: pt with no reports of radicular pain into LLE Goal to be met by: 11/23/18 Goal #2: Improve oswestry score < 20 Goal to be met by: 11/23/18 Goal #3: pt report he is able to perform normal daily activities w less pain Goal to be met by: 11/23/18 Goal #4: pt rate LBP < 3/10 Goal to be met by: 11/23/18 Plan - Treatment to be Provided Procedures: Therapeutic Exercises, Therapeutic Activity, Manual Therapy, Massage , Patient Education Modalities: Cryotherapy, Hot Packs, Mechanical Traction Other:: no electrical modalities due to pacemaker - Treatment Plan Frequency: 2-3x a week Duration: 6 weeks Dates of Senior Care Goals: 11/23/18 Expiration date of current Insurance Approval:: n/a - Treatment Code (1) Low back pain Code(s): M54.5 - LOW BACK PAIN Qualifiers: Chronicity: unspecified Back pain laterality: unspecified Sciatica presence: with sciatica Sciatica laterality: sciatica of left side Qualified Code(s): M54.42 - Lumbago with sciatica, left side (2) Radicular pain of left lower extremity Code(s): M54.10 - RADICULOPATHY, SITE UNSPECIFIED (3) Muscle tightness Code(s): M62.89 - OTHER SPECIFIED DISORDERS OF MUSCLE
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
== END 2018-10-20 23:59 ==
PROVIDERS: ATTEND Neurological Surgery
DX: B02.29 Other postherpetic nervous system involvement (principal); M54.16 Radiculopathy, lumbar region; M54.42 Lumbago with sciatica, left side; M62.89 Other specified disorders of muscle